=== PATIENT | female | born 1955 ===

== ENCOUNTER 2016-05-18 10:25 | Outpatient (CLI) | payer BC ==
--- NOTE | 2016-05-18 11:56 | XRay Report ---
THORACIC SPINE RADIOGRAPHS INDICATION: Flank pain. COMPARISON: None similar. FINDINGS: AP and lateral views to evaluate thoracic spine demonstrate normal vertebral body stature with slight levocurvature apex about T10. Mild mid to lower thoracic spine degenerative spurring/osteophytes. Grossly preserved disc heights and intact pedicles. No abnormal paraspinal density. Possible osteopenia. Clear imaged lungs. CONCLUSION: No acute thoracic spine radiographic abnormality with few degenerative changes noted, as described. Thank you for the opportunity to participate in this patient's care.
--- NOTE | 2016-05-18 14:23 | XRay Report ---
LUMBAR SPINE RADIOGRAPHS: INDICATION: Flank pain. COMPARISON: None similar. FINDINGS: AP and lateral lumbar spine radiographs demonstrate approximately 3 mm anterolisthesis of L4 over L5. Normal vertebral body stature and remainder alignment. Multilevel lumbar facet arthropathy. Slight lower lumbar disc narrowing not excluded. Mild lower thoracic degenerative spurring. Clear visualized lung bases. Nonobstructive bowel gas pattern. Possible bony demineralization. CONCLUSION: No acute lumbar radiographic abnormality with various degenerative changes noted, greatest lower lumbar, as described. Thank you for the opportunity to participate in this patient's care.
== END 2016-05-18 10:26 | disposition home or self-care (01) ==
LOC: SPVIMAG 10:25
PROVIDERS: ATTEND Internal Medicine
DX: R10.9 Unspecified abdominal pain (principal)
CPT/HCPCS: 72072; 72100